=== PATIENT | female | born 1990 | race Caucasian/White ===

== ENCOUNTER 2016-10-15 17:39 | Emergency (ER) | payer BC, OTHER ==
[2016-10-15] MEDS ORDERED: SODIUM CHLORIDE 0.9% 1,000 ML ONE (18:46)
[2016-10-15] MEDS ORDERED: ACETAMINOPHEN 500 MG TABLET ONE (18:46)
[2016-10-15 19:08] LABS: PH,URINE 6.5 (5.0-8.0); SPECIFIC GRAVITY 1.005 (1.001-1.030); URINE BILIRUBIN NEGATIVE (NEGATIVE); URINE BLOOD 4+ (NEGATIVE); URINE GLUCOSE (UA) NEGATIVE (NEGATIVE); URINE LEUKOCYTE ESTERASE NEGATIVE (NEGATIVE); URINE NITRITE NEGATIVE (NEGATIVE); URINE PROTEIN NEGATIVE (NEGATIVE); URINE UROBILINOGEN NORMAL (0-1 mg/dl)
[2016-10-15 19:09] LABS: URINE APPEARANCE CLEAR; URINE COLOR LIGHT YELLOW
[2016-10-15 19:18] LABS: URINE BACTERIA FEW; URINE WBC NEG /hpf
[2016-10-15 19:21] LABS: ABSOLUTE NEUTROPHIL COUNT 7.1 K/mm3 (1.8-7.7); BASO # 0.1 K/mm3 (0.0-0.2); BASO % 0.5 % (0.2-1.0); EOS # 0.2 (0.0-0.5); HEMATOCRIT 38.7 % (37.0-47.0); HEMOGLOBIN 13.4 gm/l (12.0-16.0); IMM NEUT% 0.3 % (0-1); MEAN CELL VOLUME 96.8 fl (81.0-99.0); MEAN CORPUSCULAR HEMOGLOBIN 33.5 pg (27.0-31.0); MEAN CORPUSCULAR HGB CONC 34.6 g/dl (33.0-37.0); MEAN PLATELET VOLUME 9.1 fl (7.4-10.4); MONO # 0.6 (0.0-0.8); MONO % 5.7 % (4-12); NEUT % 64.5 % (43-75); PLATELET COUNT 251 K/mm3 (130-400); RED CELL DISTRIBUTION WIDTH 12.1 % (11.5-14.5)
[2016-10-15 19:36] LABS: ALB/GLOB RATIO 1.3 (>1.0); ALBUMIN 4.2 gm/dL (3.5-5.7); CALCIUM 9.7 mg/dL (8.6-10.3)
--- NOTE | 2016-10-15 20:27 | US ---
Name: JOSE LEOS Exam: Obstetrical ultrasound Comparison: None Clinical history: Abdominal pain and vaginal bleeding. Gestation should be 11 weeks 5 days Findings: Transabdominal and endovaginal imaging of the pelvis was performed. Uterus is mildly enlarged. There is a prominent slightly irregular gestational sac suggesting a 9 week 5 day gestation. However, there is no pole. Yolk sac is identified. There is no perigestational hemorrhage. Right ovary is 2.5 cm and left ovary is 1.9 cm in greatest dimension and there is blood flow in both ovaries. There is no free fluid. Impression: 1. Ultrasound features of demise in early . Mean sac diameter suggests 9 weeks 5 days however there is no pole. 2. Normal appearance of the adnexa Note: The above report was uploaded to [facility]'s electronic medical records system at 2022 hours.
== END 2016-10-15 21:09 | disposition home or self-care (01) ==
LOC: ED 17:39
DX: O03.9 Complete or unspecified spontaneous abortion without complication (principal); Z3A.11 11 weeks gestation of pregnancy
CPT/HCPCS: 84702; 85025; 80053; 81001; 76817; 76801; 86901; 99284 ×2; A9270; J7030